=== PATIENT | female | born 1970 | race Two or more races ===

== ENCOUNTER → 2025-01-28 | Outpatient (CLI) | payer MEDICAID, SELFPAY ==
[2025-01-27 17:45] LABS: HCG Qualitative,Urine Negative
--- NOTE | 2025-01-28 07:30 | XR_ITS ---
Examination: CT chest, without intravenous contrast. Sagittal and coronal 2-D reconstructions. Exam date and time: January 28, 2025 0726 hours, comparison 02/13/2024. INDICATIONS: CT chest 02/13/2024 5 mm pulmonary nodule right upper lobe CTDI:vol (mGy) 8.34 DLP: (mGycm) 208 Technique: Multiple 3.0 mm axial sections of the chest to been obtained. Bone and lung density settings are obtained. Sagittal and coronal 2-D reconstructions have been obtained. Low dose protocols were performed. One or more of the following dose reduction techniques were used; automated exposure control, adjustment of the mA and/or KV according to patient size, use of iterative reconstruction technique. Findings: No thoracic aortic aneurysm dilatation Pulmonary artery segments are not enlarged. No paratracheal tracheobronchial or bronchopulmonary adenopathy. Stable 5 mm pulmonary nodule right upper lobe. No new pulmonary nodules No pneumonia or pulmonary edema No visualized liver or splenic lesion Normal pancreas Contracted gallbladder with small gallstone IMPRESSION: Stable 5 mm pulmonary nodule right upper lobe, no new pulmonary nodules Cholelithiasis
== END | disposition home or self-care (01) ==
PROVIDERS: Referring Provider Physician Assistant; Visit Provider Physician Assistant
DX: R91.1 Solitary pulmonary nodule (principal); K80.20 Calculus of gallbladder without cholecystitis without obstruction; Z32.00 Encounter for pregnancy test, result unknown
CPT/HCPCS: 71250; 81025